=== PATIENT | female | born 1985 | race Caucasian/White ===

== ENCOUNTER 2017-01-04 12:44 | Emergency (ER) | payer SELFPAY ==
[2017-01-04] MEDS ORDERED: DEXAMETHASONE SOD PHOS INJ 10 MG/1 ML VIAL IV ONE (13:47)
[2017-01-04] MEDS ORDERED: KETOROLAC TROMETHAMINE INJ/PF 30 MG/1 ML SDV IV ONE (13:47)
[2017-01-04] MEDS ORDERED: CEFTRIAXONE 1 GM/D5W RTU 50 ML IV ONE (13:47)
--- NOTE | 2017-01-04 13:52 | ER Document Report ---
ED ENT - General Chief Complaint: Sore Throat Stated Complaint: SORE THROAT Time Seen by Provider: 01/04/17 13:35 Mode of Arrival: Ambulatory Information source: Patient Notes: 31-year-old female presents to ED for complaint of nasal congestion, ear pain, sore throa,t difficulty swallowing, some shortness of breath, and fever for the last 2 nights. Denies any past medical history except for a mass on the right foot that was removed and was benign. TRAVEL OUTSIDE OF THE [place] IN LAST 30 DAYS: No - HPI Patient complains to provider of: Ear problem, Nose problem, Throat problem Onset: Other - A Onset/Duration: Gradual Quality of pain: Achy, Sharp Severity: Moderate Pain Level: 4 Context: Recent Illness Location of pain: Ears, Nose, Sinus, Throat Associated symptoms: Difficulty swallowing, Ear pain, Fever, Runny nose, Sinus drainage, Sore throat, Swollen glands Similar symptoms previously: No Recently seen / treated by doctor: No - Related Data Allergies/Adverse Reactions: No Known Allergies Allergy (Verified 01/04/17 12:53) Past Medical History - General Information source: Patient - Social History Smoking Status: Never Smoker Cigarette use (# per day): No Chew tobacco use (# tins/day): No Smoking Education Provided: No Frequency of alcohol use: None Drug Abuse: None Lives with: Family Family History: Reviewed & Not Pertinent Patient has suicidal ideation: No Patient has homicidal ideation: No - Past Medical History Cardiac Medical History: Reports: None Pulmonary Medical History: Reports: None EENT Medical History: Reports: None Neurological Medical History: Reports: None Endocrine Medical History: Reports: None Renal/ Medical History: Reports: None Malignancy Medical History: Reports: None GI Medical History: Reports: None Musculoskeltal Medical History: Reports None Skin Medical History: Reports None Psychiatric Medical History: Reports: None Traumatic Medical History: Reports: None Infectious Medical History: Reports: None Past Surgical History: Reports: Hx Orthopedic Surgery - Mass removed from foot - Immunizations Immunizations up to date: Yes Review of Systems - Review of Systems Constitutional: Fever, Recent illness EENT: Ear pain, Nose discharge, Sinus discharge, Throat pain, Difficulty swallowing Cardiovascular: No symptoms reported Respiratory: No symptoms reported Gastrointestinal: No symptoms reported Genitourinary: No symptoms reported Female Genitourinary: No symptoms reported Musculoskeletal: No symptoms reported Skin: No symptoms reported Hematologic/Lymphatic: No symptoms reported Neurological/Psychological: No symptoms reported -: Yes All other systems reviewed and negative Physical Exam - Vital signs Vitals: Temp Pulse Resp BP Pulse Ox 100.3 F 95 20 135/82 H 96 01/04/17 12:53 01/04/17 12:53 01/04/17 12:53 01/04/17 12:53 01/04/17 12:53 Interpretation: Normal - General General appearance: Appears well, Alert - HEENT Head: Normocephalic, Atraumatic Eyes: Normal Pupils: PERRL Ears: Normal External canal: Normal Tympanic membrane: Normal Sinus: Normal Nasal: Purulent discharge, Swelling Mouth/Lips: Normal Mucous membranes: Normal Pharynx: Erythema, Exudate, Post nasal drainage, Tonsillar hypertrophy. No: Uvular edema, Potential airway comprom. Neck: Anterior cervical chain - Respiratory Respiratory status: No respiratory distress Chest status: Nontender Breath sounds: Normal Chest palpation: Normal - Cardiovascular Rhythm: Regular Heart sounds: Normal auscultation Murmur: No - Abdominal Inspection: Normal Distension: No distension Bowel sounds: Normal Tenderness: Nontender Organomegaly: No organomegaly - Back Back: Normal, Nontender - Extremities General upper extremity: Normal inspection, Nontender, Normal color, Normal ROM , Normal temperature General lower extremity: Normal inspection, Nontender, Normal color, Normal ROM , Normal temperature, Normal weight bearing. No: Evreett's sign - Neurological Neuro grossly intact: Yes Cognition: Normal Orientation: AAOx4 Rhonda Coma Scale Eye Opening: Spontaneous [place] Coma Scale Verbal: Oriented Rhonda Coma Scale Motor: Obeys Commands Rhonda Coma Scale Total: 15 Speech: Normal Motor strength normal: LUE, RUE, LLE, RLE Sensory: Normal - Psychological Associated symptoms: Normal affect, Normal mood - Skin Skin Temperature: Warm Skin Moisture: Dry Skin Color: Normal Course - Re-evaluation Re-evalutation: 01/04/17 15:40 Subjective this for a left peritonsillar abscess noted after giving Rocephin Decadron and Toradol for her strep throat. Abdomen stated he will try to drain the abscess. Did give the patient 600 mg of clindamycin IV now and sent her home on clindamycin. 01/04/17 17:01 She was treated with clindamycin IV in the ED. Dr. Laura aspirated the left peritonsillar abscess. Will discharge patient home on clindamycin and Decadron p.o. Patient to return to the ED on Saturday for reassessment and sooner if she has not had any relief or if the tonsil feels larger she is not able to swallow or develops a fever. - Vital Signs Vital signs: Temp Pulse Resp BP Pulse Ox 100.3 F 95 20 135/82 H 96 01/04/17 12:53 01/04/17 12:53 01/04/17 12:53 01/04/17 12:53 01/04/17 12:53 Discharge - Discharge Clinical Impression: Strep pharyngitis, Peritonsillar abscess Condition: Stable Disposition: HOME, SELF-CARE Additional Instructions: Mayela-Tonsillar Abscess You have a mayela-tonsillar abscess, a pus-filled swelling adjacent to the tonsil. Some abscesses may be left to drain on their own, but most require opening or lancing. It may be a couple of days before the abscess is ready to obdulia or to differentiate an abscess from just local tissue infection called cellulitis. An antibiotic may prevent spread of the infection and a steroid medication may reduce the swelling. Once the abscess is opened, either on its own or by lancing it, the wound will heal with surprisingly little scar. Depending on the size of an abscess, healing can take one to four weeks. If you develop fever, chills, worsening pain, or increasing swelling in the area, call the doctor or return immediately. The major risk of a mayela- tonsillar abscess is that it may swell so much that it impinges on your airway and can lead to dangerous obstruction of your breathing. If that seems to be developing, you should seek immediate emergency re-evaluation and care. STREP THROAT: Your sore throat is due to the streptococcus germ (strep throat). Strep throat usually makes you feel quite ill with fever and aches, headache, swollen sore throat, and tender bumps under the angles of the jaw. Strep throat requires antibiotic treatment. Although the sore throat may go away by itself, complications such as rheumatic fever, kidney disease, or throat abscess can occur. We usually prescribe antibiotics by mouth. Be sure to take the medicine until it's gone. If you stop early, the strep may come back. If you are vomiting, are severely ill, or can't remember to take pills, we can give you an antibiotic shot. Take acetaminophen or ibuprofen for pain and fever. Sip frequent clear liquids, or use popsicles or ice chips. Anesthetic sprays or lozenges may help. Make sure the air in the room is not too dry. Avoid using decongestants or antihistamines. Call the doctor if there is no improvement in three days, or if you have difficulty breathing, increasing throat pain, high fever, rash, or frequent vomiting. ORAL NARCOTIC MEDICATION: You have been given a prescription for pain control. This medication is a narcotic. It's best taken with food, as nausea can result if taken on an empty stomach. Don't operate machinery or drive within six hours of taking this medication. Do not combine this medicine with alcohol, or with any medication which can cause sedation (such as cold tablets or sleeping pills) unless you get permission from the physician. Narcotics tend to cause constipation. If possible, drink plenty of fluids and eat a diet high in fiber and fruits. Please be aware that prescription narcotics also have the potential for abuse. People become addicted to these medications because of the general sense of wellbeing that they induce. This feeling along with a significant reduction in tension, anxiety, and aggression provides a stimulating seductive quality to these drugs. Once your pain is under control, we encourage you to discard your unused narcotics. Rocephin You have been given an injection of an antibiotic called Rocephin ( ceftriaxone). Sometimes the injection must be combined with antibiotic pills. For some infections, such as an uncomplicated ear infection, Rocephin provides all the antibiotic that's needed. The antibiotic will be in your body for about two days. For serious infections, we usually repeat doses of Rocephin daily. Side effects are very unusual following a shot. Women may develop vaginal yeast infections, and babies can get yeast (thrush) in the mouth following the use of antibiotics. Contact your physician if you have symptoms with this medication. Allergy to this antibiotic can result in hives, wheezing, faintness, or itching. If symptoms of allergy occur, call the doctor at once. Clindamycin You have been given a prescription for the antibiotic clindamycin. It is often prescribed for infections in the mouth, such as dental infections or abscesses, and for skin infections due to MRSA. It's important that you take all the medication, unless instructed otherwise by your physician. Failure to complete the entire course can result in relapse of your condition. Common side effects of antibiotics include nausea, intestinal cramping, or diarrhea. Women may develop vaginal yeast infections, and babies can get yeast (thrush) in the mouth following the use of antibiotics. Contact your physician if you develop significant side effects from this medication. Allergy to this antibiotic can result in hives, wheezing, faintness, or itching. If symptoms of allergy occur, stop the medication and call the doctor. STEROID MEDICATION: You have been given a medicine of the cortisone/steroid class. This medication is used to control inflammation or allergy. It is usually only given for a short period of time, until the acute process subsides. There are usually no side effects from short-term use of cortisone-like medications. Some persons feel an increased sense of well-being and are not sleepy at bedtime. Long-term use of cortisone medications is best avoided, unless required for a severe condition. If your condition does not remit, or relapses after the course of corticosteroid medication, you should consult your physician. FOLLOW-UP CARE: If you have been referred to a physician for follow-up care, call the physician s office for an appointment as you were instructed or within the next two days. If you experience worsening or a significant change in your symptoms, notify the physician immediately or return to the Emergency Department at any time for re-evaluation. Up with local ENT in [facility] for [facility] Please complete the patient's satisfaction survey if you get one and return. If you do not receive a survey you can go to [facility] website [email or web address] and place your comments about your very good care. Thank you very much. It was a pleasure be in your medical provider today. Prescriptions: Clindamycin HCl [Cleocin 300 mg Capsule] 300 mg PO TID 10 Days Dexamethasone [Decadron 4 Mg Tablet] 8 mg PO Q8 3 Days Forms: Elevated Blood Pressure, Return to Work
[2017-01-04] MEDS ORDERED: CLINDAMYCIN 600 MG/D5W RTU 50 ML IV ONE (15:37)
[2017-01-04] MEDS ORDERED: LIDOCAINE 1% INJ (10 MG/ML) 10 ML MDV INJ ONE (15:44)
[2017-01-04] MEDS ORDERED: LIDOCAINE 1% INJ-PF (10 MG/ML) 30 ML SDV NEB ONE (15:44)
[2017-01-04 17:21] VITALS: BP 126/71
== END 2017-01-04 17:21 | disposition home or self-care (01) ==
LOC: ER 12:44
DX: J02.0 Streptococcal pharyngitis (principal); J36 Peritonsillar abscess; R09.81 Nasal congestion; H92.09 Otalgia, unspecified ear; R13.10 Dysphagia, unspecified; R06.02 Shortness of breath; R50.9 Fever, unspecified
CPT/HCPCS: 36415; 87880; 84703; 86308; J3490; J1885; J0696; J1100; 96365; 96367; 96375; 99283

== ENCOUNTER 2017-09-03 14:36 | Emergency (ER) | payer SELFPAY ==
[2017-09-03 14:49] VITALS: BP 142/93
--- NOTE | 2017-09-03 16:56 | ER Document Report ---
ED General - General Chief Complaint: Ear Pain Stated Complaint: EAR PAIN Time Seen by Provider: 09/03/17 16:28 Mode of Arrival: Ambulatory Information source: Patient TRAVEL OUTSIDE OF THE [place] IN LAST 30 DAYS: No - HPI Notes: 32-year-old female presents today with complaints of bilateral ear pain 2 days. Denies any fevers and chills, reports pain is 4/10, achy. Some hearing loss. No otc medications tried. Worse with time, nothing makes better. Pain is progressive. Ddenies any trauma to ear. Denies any ear drainage. States she recently noticed she has been getting fluid in her ears after showers. Is not reporting any of, but is not to prevent this. His any chest pain, shortness of breath, nausea, vomiting, diarrhea. Denies any blurred vision, double vision, loss of vision. Denies any rashes. - Related Data Allergies/Adverse Reactions: No Known Allergies Allergy (Verified 09/03/17 14:37) Past Medical History - General Information source: Patient - Social History Smoking Status: Unknown if Ever Smoked Family History: Reviewed & Not Pertinent Renal/ Medical History: Denies: Hx Peritoneal Dialysis Past Surgical History: Reports: Hx Orthopedic Surgery - Mass removed from foot - Immunizations Immunizations up to date: Yes Hx Diphtheria, Pertussis, Tetanus Vaccination: Yes Review of Systems - Review of Systems Constitutional: No symptoms reported EENT: See HPI Cardiovascular: No symptoms reported Respiratory: No symptoms reported Gastrointestinal: No symptoms reported Genitourinary: No symptoms reported Musculoskeletal: No symptoms reported Skin: No symptoms reported Hematologic/Lymphatic: No symptoms reported Neurological/Psychological: No symptoms reported -: Yes All other systems reviewed and negative Physical Exam - Vital signs Vitals: Temp Pulse Resp BP Pulse Ox 99.0 F 92 20 142/93 H 98 09/03/17 14:47 09/03/17 14:47 09/03/17 14:47 09/03/17 14:47 09/03/17 14:47 Interpretation: Normal - Notes Notes: PHYSICAL EXAMINATION: GENERAL: Well-appearing, well-nourished and in no acute distress. HEAD: Atraumatic, normocephalic. EYES: Pupils equal round and reactive to light, extraocular movements intact, conjunctiva are normal. ENT: Nares patent, oropharynx clear without exudates. Moist mucous membranes. Right and left TM without erythema, gutiérrez in color and intact. Left and Right ear canal with erythema and swelling. no drainage noted. Throat without exudates. No lymphadenopathy noted. No facial swelling no erythema no exudate no angioedema no drooling no trismus bilateral arches equal. Uvula midline. No mastoid tenderness bilaterally. NECK: Normal range of motion, supple without lymphadenopathy LUNGS: Breath sounds clear to auscultation bilaterally and equal. No wheezes rales or rhonchi. HEART: Regular rate and rhythm without murmurs ABDOMEN: Soft, nontender, nondistended abdomen. No guarding, no rebound. No masses appreciated. Female : deferred Musculoskeletal: Normal range of motion, no pitting or edema. No cyanosis. NEUROLOGICAL: Cranial nerves grossly intact. Normal speech, normal gait. Normal sensory, motor exams PSYCH: Normal mood, normal affect. SKIN: Warm, Dry, normal turgor, no rashes or lesions noted. Course - Re-evaluation Re-evalutation: 09/03/17 17:[address] cotton balls in years while showering, take ibuprofen and Tylenol as needed for any pain as directed. Use eardrops as directed. Follow- up with PCP within 1 week to recheck ears. Patient verbalized an understanding of plan of care and agree with plan of care. - Vital Signs Vital signs: Temp Pulse Resp BP Pulse Ox 99.0 F 92 20 142/93 H 98 09/03/17 14:47 09/03/17 14:47 09/03/17 14:47 09/03/17 14:47 09/03/17 14:47 Discharge - Discharge Clinical Impression: Bilateral otitis externa Qualifiers: Otitis externa type: swimmer's ear Chronicity: acute Qualified Code(s): H60.333 - Swimmer's ear, bilateral Condition: Good Disposition: HOME, SELF-CARE Instructions: Otitis Externa ([facility]), Use of Ear Drops ([facility]) Prescriptions: Neomy Sulf/Polymyx B Sulf/Hc [Cortisporin Otic Susp] 4 drop AU QID 7 Days #1 bottle Referrals: CHRIS DOWELL DO [NO LOCAL MD] - Follow up in 3-5 days
== END 2017-09-03 17:03 | disposition home or self-care (01) ==
LOC: ER 14:36
DX: H60.333 Swimmer's ear, bilateral (principal); H92.03 Otalgia, bilateral
CPT/HCPCS: 99282